=== PATIENT | female | born 1990 | race Caucasian/White ===

== ENCOUNTER 2018-04-02 12:42 | Emergency (ER) | payer OTHER, SELFPAY ==
[2018-04-02 12:49] VITALS: BMI 33.1
--- NOTE | 2018-04-02 12:55 | DI.US.S_ITS ---
PROCEDURE: US OB <= 14 WEEKS FETUS INDICATIONS: BLEEDING OUTSIDE/PRIOR DATING DATA: Last menstrual period (LMP): 02/11/18. LMP-based estimated date of delivery (DONNELL): 11/18/18. First dating scan (date and location): 04/02/18. Estimated date of delivery (DONNELL) from first dating scan: 11/26/18. TECHNIQUE: Real-time scanning was performed of the fetus and maternal pelvic organs, with image documentation. Endovaginal scanning was also performed to better visualize the fetus and maternal ovaries. COMPARISON: None. FINDINGS: Embryo: A single intrauterine gestational sac is identified. A developing embryo is well visualized with a crown-rump length measuring approximately 0.35 mm, which corresponds with an estimated gestational age of 6 weeks 0 days. heart motion was detected at 113 beats per minute. A yolk sac is well-visualized and within normal limits for size. No definite subchorionic hemorrhage is appreciated. Measurement variability in dating: +/- 4 weeks by LMP, +/- 7 days by mean sac diameter (use before 6 weeks gestation if crown-rump length not able to be measured), +/- 5 days by crown-rump length (up to 8 weeks 6 days gestation), +/- 7 days by crown-rump length (up to 13 weeks 6 days gestation). Maternal organs: Ovaries are normal in size. Limited images through the kidneys demonstrate no hydronephrosis. IMPRESSION: 1. Single live intrauterine at 6 weeks 0 days (current DONNELL 11/26/18). 2. No subchorionic hemorrhage. Dictated by: Paresh Trevino M.D. on 04/02/2018 at 14:05 Approved by: Paresh Trevino M.D. on 04/02/2018 at 14:06
[2018-04-02 13:12] LABS: Add Manual Diff / Slide Review NO; Basophils Percent Auto 0.5 % (0-2); Eosinophils Percent Auto 1.7 % (2-4); Hemoglobin 12.8 g/dL (12.0-16.0); Lymphocytes Percent Auto 18.6 % (25-40); Mean Corpuscular HGB Conc 33.7 % (30-36); Mean Corpuscular Hemoglobin 29.3 PG (26-34); Mean Corpuscular Volume 86.8 fL (80-100); Monocytes Percent Auto 4.7 % (3-14); Neutrophils Absolute Auto 7900 /uL (1500-7000); Neutrophils Percent Auto 74.5 % (50-75); Platelet Count 272 X10^3/uL (150-400); Red Blood Cell Count 4.38 X10^6/uL (4.0-5.2); Red Cell Distribution Width 12.9 % (11.6-14.8); White Blood Cell Count 10.7 X10^3/uL (4.5-11.0)
[2018-04-02 13:32] LABS: Alanine Aminotransferase 27 IU/L (9-52); Albumin 4.6 g/dL (3.5-5.0); Albumin Globulin Ratio 1.5 (1.0-2.8); Alkaline Phosphatase 47 U/L (38-126); Aspartate Aminotransferase 22 IU/L (14-36); Bilirubin Total 0.3 mg/dL (0.2-1.3); Blood Urea Nitrogen 12 mg/dL (7-17); Calcium 9.3 mg/dL (8.4-10.2); Carbon Dioxide 22 mmol/L (22-32); Chloride 104 mmol/L (98-107); Estimated Glomerular Filt Rate > 60.0 mL/min (>60); Globulin 3.1 g/dL (1.7-4.1); Glucose 133 mg/dL (70-100); HEMOLYSIS < 15 (0-50); Potassium 3.4 mmol/L (3.4-5.1); Sodium 141 mmol/L (137-145); Total Protein 7.7 g/dL (6.3-8.2)
[2018-04-02 13:48] LABS: HCG Quantitative /Beta subunit 8451.3 mIU/mL
--- NOTE | 2018-04-02 15:49 | ED.PREGNANCY ---
HPI - <LAUREN Villalobos - Last Filed: 04/02/18 21:02> General Chief complaint: OB/Uterine Contractions Stated complaint: 7 weeks ; spotting Time Seen by Provider: 04/02/18 13:10 Source: patient Mode of arrival: ambulatory Limitations: no limitations History of Present Illness HPI Narrative: 27-year-old healthy female that prior to was an everyday smoker here for complaint vaginal spotting yesterday. She reports that she is approximately 7 weeks . She is 1. She denies any abdominal pain or cramping. She denies any urinary symptoms. No fevers or chills. She denies any flank pain. She reports that she saw blood when she was wiping. She has not had any other bleeding today. She denies any other concerns or complaints this timeframe. She does not know her blood type. Related Data Allergies Allergy/AdvReac Type Severity Reaction Status Date / Time Penicillins Allergy Verified 04/02/18 12:49 Review of Systems <LAUREN Villalobos - Last Filed: 04/02/18 21:02> Constitutional Denies chills, Denies fever(s), Denies lethargy and Denies weakness Eyes Denies change in vision, Denies eye discharge, Denies irritation and Denies loss of vision ENT Ears, Nose, Mouth, and Throat: Denies change in voice, Denies neck pain and Denies sore throat Cardiovascular Denies chest pain, Denies irregular heart rhythm, Denies lightheadedness, Denies palpitations, Denies dyspnea, Denies dyspnea on exertion and Denies orthopnea Respiratory Denies cough, Denies dyspnea, Denies dyspnea on exertion and Denies wheezing Gastrointestinal Gastrointestinal: Denies abdominal pain, Denies change in bowel habits, Denies diarrhea, Denies nausea and Denies vomiting Genitourinary Comments: Vaginal bleeding with Musculoskeletal Denies neck pain Integumentary/Breasts Denies pruritus, Denies erythema, Denies rash and Denies wounds Neurologic Denies confusion, Denies loss of vision and Denies weakness Psychiatric Denies anxiety, Denies confusion, Denies depression, Denies homicidal ideation and Denies suicidal ideation Endocrine Denies palpitations Allergic/Immunologic Denies wheezing PMFSH - <LAUREN Villalobos - Last Filed: 04/02/18 21:02> Past Medical History Medical history: Reports no medical history Surgical history: Reports no surgical history Exam <LAUREN Villalobos - Last Filed: 04/02/18 21:02> Const General: cooperative and well developed Nutritional Appearance: well nourished Orientation: alert, awake, oriented x3 and not confused [facility] Mouth: oral mucosae normal and moist mucous membranes Eyes Conjunctivae: conjunctivae normal Sclera: sclerae normal Pupils: PERRL EOM: EOM intact bilaterally Resp Effort & Inspection: normal respiratory effort, able to speak in complete sentences, no respiratory distress and no use of accessory muscles Auscultation: clear to auscultation bilaterally, no rales, no rhonchi and no wheezes Cardio Rate: regular rate Rhythm: regular rhythm Heart Sounds: no click, no gallops, no murmurs and no rubs Pulses: normal peripheral pulses GI Inspection: non-distended Palpation: soft, no hepatosplenomegaly, No guarding, No pulsatile mass and No tender Auscultation: normal bowel sounds General: No CVA tenderness Skin General: no rashes or lesions noted, No jaundice and No petechiae Neuro General: alert, oriented x3, gait normal and no focal motor deficits Speech: speech normal Course <LAUREN Villalobos - Last Filed: 04/02/18 21:02> Orders Ordered: ED Orders 04/02/18 12:55 OB <= 14 weeks fetus Stat 04/02/18 13:04 ABO RH Type Stat Complete Blood Count AUTO DIFF Stat Comprehensive Metabolic Panel Stat HCG Quantitative Stat <Antony Issa DO - Last Filed: 04/02/18 21:53> Orders Ordered: ED Orders 04/02/18 12:55 OB <= 14 weeks fetus Stat 04/02/18 13:04 ABO RH Type Stat Complete Blood Count AUTO DIFF Stat Comprehensive Metabolic Panel Stat HCG Quantitative Stat MDM - OB/Uterine Contractions <LAUREN Villalobos - Last Filed: 04/02/18 21:02> Lab Data Result diagrams: 04/02/18 13:04 04/02/18 13:04 Lab Results 04/02/18 04/02/18 04/02/18 Range/Units 13:04 13:04 13:04 WBC 10.7 (4.5-11.0) X10^3/uL RBC 4.38 (4.0-5.2) X10^6/uL Hgb 12.8 (12.0-16.0) g/dL Hct 38.0 (36-46) % MCV 86.8 (80-100) fL MCH 29.3 (26-34) PG MCHC 33.7 (30-36) % RDW 12.9 (11.6-14.8) % Plt Count 272 (150-400) X10^3/uL Neut % (Auto) 74.5 (50-75) % Lymph % (Auto) 18.6 L (25-40) % Tate % (Auto) 4.7 (3-14) % Eos % (Auto) 1.7 L (2-4) % Baso % (Auto) 0.5 (0-2) % Neut # (Auto) 7900 H (7118-2284) /uL Sodium 141 (137-145) mmol/L Potassium 3.4 (3.4-5.1) mmol/L Chloride 104 (98-107) mmol/L Carbon Dioxide 22 (22-32) mmol/L BUN 12 (7-17) mg/dL Creatinine 0.60 (0.52-1.04) mg/dL Estimated GFR > 60.0 (>60) mL/min BUN/Creatinine Ratio 20.0 (6-22) Glucose 133 H (70-100) mg/dL Calcium 9.3 (8.4-10.2) mg/dL Total Bilirubin 0.3 (0.2-1.3) mg/dL AST 22 (14-36) IU/L ALT 27 (9-52) IU/L Alkaline Phosphatase 47 (38-126) U/L Total Protein 7.7 (6.3-8.2) g/dL Albumin 4.6 (3.5-5.0) g/dL Globulin 3.1 (1.7-4.1) g/dL Albumin/Globulin Ratio 1.5 (1.0-2.8) HCG, Quant 8451.3 mIU/mL Blood Type A Positive Urine Dip Bedside Urine Glucose Negative Bedside Urine Bilirubin - Negative Bedside Urine Ketone ++ 40 Urine Specific [place] 1.030 Bedside Urine Occult Blood - Negative Bedside Urine pH 6.0 Bedside Urine Protein - Negative Bedside Urine Urobilinogen - Negative Bedside Urine Nitrite - Negative Bedside Urine Leukocytes - Negative Esterase Imaging Data OB us: Radiologist's impression: [address] [address] Ultrasound Report Signed Patient: Deepa Hicks MR#: [id number] : 1990 Acct:[id number] Age/Sex: 27 / F Date of Service: 04/02/18 Loc: ED Accession Number: [id number] Procedure: US OB <= 14 weeks fetus Ordering Provider: Kristan Amaro D.O. PROCEDURE: US OB <= 14 WEEKS FETUS INDICATIONS: BLEEDING OUTSIDE/PRIOR DATING DATA: Last menstrual period (LMP): 02/11/18. LMP-based estimated date of delivery (DONNELL): 11/18/18. First dating scan (date and location): 04/02/18. Estimated date of delivery (DONNELL) from first dating scan: 11/26/18. TECHNIQUE: Real-time scanning was performed of the fetus and maternal pelvic organs, with image documentation. Endovaginal scanning was also performed to better visualize the fetus and maternal ovaries. COMPARISON: None. FINDINGS: Embryo: A single intrauterine gestational sac is identified. A developing embryo is well visualized with a crown-rump length measuring approximately 0.35 mm, which corresponds with an estimated gestational age of 6 weeks 0 days. heart motion was detected at 113 beats per minute. A yolk sac is well-visualized and within normal limits for size. No definite subchorionic hemorrhage is appreciated. Measurement variability in dating: +/- 4 weeks by LMP, +/- 7 days by mean sac diameter (use before 6 weeks gestation if crown-rump length not able to be measured), +/- 5 days by crown-rump length (up to 8 weeks 6 days gestation), +/- 7 days by crown-rump length (up to 13 weeks 6 days gestation). Maternal organs: Ovaries are normal in size. Limited images through the kidneys demonstrate no hydronephrosis. IMPRESSION: 1. Single live intrauterine at 6 weeks 0 days (current DONNELL 11/26/18). 2. No subchorionic hemorrhage. Dictated by: Paresh Trevino M.D. on 04/02/2018 at 14:05 Approved by: Paresh Trevino M.D. on 04/02/2018 at 14:06 [facility] Narrative Medical decision making narrative: CBC and Chem panel were obtained were unremarkable. HCG quantitative was 8400 today. Ob ultrasound shows approximately 6 week intrauterine yolk sac with heart rate of 113. Her blood type is A positive. Signs and symptoms presents as a threatened . She is encouraged to follow up with her OB in the next couple of days for re-evaluation. Pelvic rest. [id number] Tylenol as needed for any discomfort. For any worsening bleeding or problems return to the emergency room. <Antony Issa, DO - Last Filed: 04/02/18 21:53> Lab Data Lab Results 04/02/18 04/02/18 04/02/18 Range/Units 13:04 13:04 13:04 WBC 10.7 (4.5-11.0) X10^3/uL RBC 4.38 (4.0-5.2) X10^6/uL Hgb 12.8 (12.0-16.0) g/dL Hct 38.0 (36-46) % MCV 86.8 (80-100) fL MCH 29.3 (26-34) PG MCHC 33.7 (30-36) % RDW 12.9 (11.6-14.8) % Plt Count 272 (150-400) X10^3/uL Neut % (Auto) 74.5 (50-75) % Lymph % (Auto) 18.6 L (25-40) % Tate % (Auto) 4.7 (3-14) % Eos % (Auto) 1.7 L (2-4) % Baso % (Auto) 0.5 (0-2) % Neut # (Auto) 7900 H (2381-5034) /uL Sodium 141 (137-145) mmol/L Potassium 3.4 (3.4-5.1) mmol/L Chloride 104 (98-107) mmol/L Carbon Dioxide 22 (22-32) mmol/L BUN 12 (7-17) mg/dL Creatinine 0.60 (0.52-1.04) mg/dL Estimated GFR > 60.0 (>60) mL/min BUN/Creatinine Ratio 20.0 (6-22) Glucose 133 H (70-100) mg/dL Calcium 9.3 (8.4-10.2) mg/dL Total Bilirubin 0.3 (0.2-1.3) mg/dL AST 22 (14-36) IU/L ALT 27 (9-52) IU/L Alkaline Phosphatase 47 (38-126) U/L Total Protein 7.7 (6.3-8.2) g/dL Albumin 4.6 (3.5-5.0) g/dL Globulin 3.1 (1.7-4.1) g/dL Albumin/Globulin Ratio 1.5 (1.0-2.8) HCG, Quant 8451.3 mIU/mL Blood Type A Positive Urine Dip Bedside Urine Glucose Negative Bedside Urine Bilirubin - Negative Bedside Urine Ketone ++ 40 Urine Specific [place] 1.030 Bedside Urine Occult Blood - Negative Bedside Urine pH 6.0 Bedside Urine Protein - Negative Bedside Urine Urobilinogen - Negative Bedside Urine Nitrite - Negative Bedside Urine Leukocytes - Negative Esterase Discharge Plan Departure Patient Disposition: Home Clinical Impression: , threatened Discharge Date/Time: 04/02/18 16:17 Interventions: ED Discharge Assessment Last Done: 04/02/18 16:16 Instructions: DI for Threatened Activity Restrictions/Additional Instructions: Laboratory results today were unremarkable. Ultrasound shows 6 week healthy baby in the uterus with a good heart beat. Signs and symptoms presents as a threatened . Pelvic rest. [id number] Tylenol as needed for any discomfort. Follow up with OB in the next few days for re-evaluation. For any worsening symptoms return to the emergency room. Referrals: [facility] [Provider Group] <Antony Isas DO - Last Filed: 04/02/18 21:53> Cosign ED Attending Jimmy Attestation: I was available for consultation during this patient's emergency department encounter
--- NOTE | 2018-04-02 15:52 | ED_ITS ---
HPI - <LAUREN Villalobos - Last Filed: 04/02/18 21:02> General Chief complaint: OB/Uterine Contractions Stated complaint: 7 weeks ; spotting Time Seen by Provider: 04/02/18 13:10 Source: patient Mode of arrival: ambulatory Limitations: no limitations History of Present Illness HPI Narrative: 27-year-old healthy female that prior to was an everyday smoker here for complaint vaginal spotting yesterday. She reports that she is approximately 7 weeks . She is 1. She denies any abdominal pain or cramping. She denies any urinary symptoms. No fevers or chills. She denies any flank pain. She reports that she saw blood when she was wiping. She has not had any other bleeding today. She denies any other concerns or complaints this timeframe. She does not know her blood type. Related Data Allergies Allergy/AdvReac Type Severity Reaction Status Date / Time Penicillins Allergy Verified 04/02/18 12:49 Review of Systems <LAUREN Villalobos - Last Filed: 04/02/18 21:02> Constitutional Denies chills, Denies fever(s), Denies lethargy and Denies weakness Eyes Denies change in vision, Denies eye discharge, Denies irritation and Denies loss of vision ENT Ears, Nose, Mouth, and Throat: Denies change in voice, Denies neck pain and Denies sore throat Cardiovascular Denies chest pain, Denies irregular heart rhythm, Denies lightheadedness, Denies palpitations, Denies dyspnea, Denies dyspnea on exertion and Denies orthopnea Respiratory Denies cough, Denies dyspnea, Denies dyspnea on exertion and Denies wheezing Gastrointestinal Gastrointestinal: Denies abdominal pain, Denies change in bowel habits, Denies diarrhea, Denies nausea and Denies vomiting Genitourinary Comments: Vaginal bleeding with Musculoskeletal Denies neck pain Integumentary/Breasts Denies pruritus, Denies erythema, Denies rash and Denies wounds Neurologic Denies confusion, Denies loss of vision and Denies weakness Psychiatric Denies anxiety, Denies confusion, Denies depression, Denies homicidal ideation and Denies suicidal ideation Endocrine Denies palpitations Allergic/Immunologic Denies wheezing PMFSH - <LAUREN Villalobos - Last Filed: 04/02/18 21:02> Past Medical History Medical history: Reports no medical history Surgical history: Reports no surgical history Exam <LAUREN Villalobos - Last Filed: 04/02/18 21:02> Const General: cooperative and well developed Nutritional Appearance: well nourished Orientation: alert, awake, oriented x3 and not confused [facility] Mouth: oral mucosae normal and moist mucous membranes Eyes Conjunctivae: conjunctivae normal Sclera: sclerae normal Pupils: PERRL EOM: EOM intact bilaterally Resp Effort & Inspection: normal respiratory effort, able to speak in complete sentences, no respiratory distress and no use of accessory muscles Auscultation: clear to auscultation bilaterally, no rales, no rhonchi and no wheezes Cardio Rate: regular rate Rhythm: regular rhythm Heart Sounds: no click, no gallops, no murmurs and no rubs Pulses: normal peripheral pulses GI Inspection: non-distended Palpation: soft, no hepatosplenomegaly, No guarding, No pulsatile mass and No tender Auscultation: normal bowel sounds General: No CVA tenderness Skin General: no rashes or lesions noted, No jaundice and No petechiae Neuro General: alert, oriented x3, gait normal and no focal motor deficits Speech: speech normal Course <LAUREN Villalobos - Last Filed: 04/02/18 21:02> Orders Ordered: ED Orders 04/02/18 12:55 OB <= 14 weeks fetus Stat 04/02/18 13:04 ABO RH Type Stat Complete Blood Count AUTO DIFF Stat Comprehensive Metabolic Panel Stat HCG Quantitative Stat <Antony Issa DO - Last Filed: 04/02/18 21:53> Orders Ordered: ED Orders 04/02/18 12:55 OB <= 14 weeks fetus Stat 04/02/18 13:04 ABO RH Type Stat Complete Blood Count AUTO DIFF Stat Comprehensive Metabolic Panel Stat HCG Quantitative Stat MDM - OB/Uterine Contractions <LAUREN Villalobos - Last Filed: 04/02/18 21:02> Lab Data Result diagrams: 04/02/18 13:04 04/02/18 13:04 Lab Results 04/02/18 04/02/18 04/02/18 Range/Units 13:04 13:04 13:04 WBC 10.7 (4.5-11.0) X10^3/uL RBC 4.38 (4.0-5.2) X10^6/uL Hgb 12.8 (12.0-16.0) g/dL Hct 38.0 (36-46) % MCV 86.8 (80-100) fL MCH 29.3 (26-34) PG MCHC 33.7 (30-36) % RDW 12.9 (11.6-14.8) % Plt Count 272 (150-400) X10^3/uL Neut % (Auto) 74.5 (50-75) % Lymph % (Auto) 18.6 L (25-40) % [place] % (Auto) 4.7 (3-14) % Eos % (Auto) 1.7 L (2-4) % Baso % (Auto) 0.5 (0-2) % Neut # (Auto) 7900 H (4629-1695) /uL Sodium 141 (137-145) mmol/L Potassium 3.4 (3.4-5.1) mmol/L Chloride 104 (98-107) mmol/L Carbon Dioxide 22 (22-32) mmol/L BUN 12 (7-17) mg/dL Creatinine 0.60 (0.52-1.04) mg/dL Estimated GFR > 60.0 (>60) mL/min BUN/Creatinine Ratio 20.0 (6-22) Glucose 133 H (70-100) mg/dL Calcium 9.3 (8.4-10.2) mg/dL Total Bilirubin 0.3 (0.2-1.3) mg/dL AST 22 (14-36) IU/L ALT 27 (9-52) IU/L Alkaline Phosphatase 47 (38-126) U/L Total Protein 7.7 (6.3-8.2) g/dL Albumin 4.6 (3.5-5.0) g/dL Globulin 3.1 (1.7-4.1) g/dL Albumin/Globulin Ratio 1.5 (1.0-2.8) HCG, Quant 8451.3 mIU/mL Blood Type A Positive Urine Dip Bedside Urine Glucose Negative Bedside Urine Bilirubin - Negative Bedside Urine Ketone ++ 40 Urine Specific [place] 1.030 Bedside Urine Occult Blood - Negative Bedside Urine pH 6.0 Bedside Urine Protein - Negative Bedside Urine Urobilinogen - Negative Bedside Urine Nitrite - Negative Bedside Urine Leukocytes - Negative Esterase Imaging Data OB us: Radiologist's impression: [address] [address] Ultrasound Report Signed Patient: Deepa Hicks MR#: [id number] : 1990 Acct:[id number] Age/Sex: 27 / F Date of Service: 04/02/18 Loc: ED Accession Number: [id number] Procedure: US OB <= 14 weeks fetus Ordering Provider: Kristan Amaro D.O. PROCEDURE: US OB <= 14 WEEKS FETUS INDICATIONS: BLEEDING OUTSIDE/PRIOR DATING DATA: Last menstrual period (LMP): 02/11/18. LMP-based estimated date of delivery (DONNELL): 11/18/18. First dating scan (date and location): 04/02/18. Estimated date of delivery (DONNELL) from first dating scan: 11/26/18. TECHNIQUE: Real-time scanning was performed of the fetus and maternal pelvic organs, with image documentation. Endovaginal scanning was also performed to better visualize the fetus and maternal ovaries. COMPARISON: None. FINDINGS: Embryo: A single intrauterine gestational sac is identified. A developing embryo is well visualized with a crown-rump length measuring approximately 0.35 mm, which corresponds with an estimated gestational age of 6 weeks 0 days. heart motion was detected at 113 beats per minute. A yolk sac is well-visualized and within normal limits for size. No definite subchorionic hemorrhage is appreciated. Measurement variability in dating: +/- 4 weeks by LMP, +/- 7 days by mean sac diameter (use before 6 weeks gestation if crown-rump length not able to be measured), +/ - 5 days by crown-rump length (up to 8 weeks 6 days gestation), +/- 7 days by crown-rump length (up to 13 weeks 6 days gestation). Maternal organs: Ovaries are normal in size. Limited images through the kidneys demonstrate no hydronephrosis. IMPRESSION: 1. Single live intrauterine at 6 weeks 0 days (current DONNELL 11/26/18). 2. No subchorionic hemorrhage. Dictated by: Paresh Trevino M.D. on 04/02/2018 at 14:05 Approved by: Paresh Trevino M.D. on 04/02/2018 at 14:06 [facility] Narrative Medical decision making narrative: CBC and Chem panel were obtained were unremarkable. HCG quantitative was 8400 today. Ob ultrasound shows approximately 6 week intrauterine yolk sac with heart rate of 113. Her blood type is A positive. Signs and symptoms presents as a threatened . She is encouraged to follow up with her OB in the next couple of days for re- evaluation. Pelvic rest. [id number] Tylenol as needed for any discomfort. For any worsening bleeding or problems return to the emergency room. <Antony Issa, DO - Last Filed: 04/02/18 21:53> Lab Data Lab Results 04/02/18 04/02/18 04/02/18 Range/Units 13:04 13:04 13:04 WBC 10.7 (4.5-11.0) X10^3/uL RBC 4.38 (4.0-5.2) X10^6/uL Hgb 12.8 (12.0-16.0) g/dL Hct 38.0 (36-46) % MCV 86.8 (80-100) fL MCH 29.3 (26-34) PG MCHC 33.7 (30-36) % RDW 12.9 (11.6-14.8) % Plt Count 272 (150-400) X10^3/uL Neut % (Auto) 74.5 (50-75) % Lymph % (Auto) 18.6 L (25-40) % [place] % (Auto) 4.7 (3-14) % Eos % (Auto) 1.7 L (2-4) % Baso % (Auto) 0.5 (0-2) % Neut # (Auto) 7900 H (0532-0941) /uL Sodium 141 (137-145) mmol/L Potassium 3.4 (3.4-5.1) mmol/L Chloride 104 (98-107) mmol/L Carbon Dioxide 22 (22-32) mmol/L BUN 12 (7-17) mg/dL Creatinine 0.60 (0.52-1.04) mg/dL Estimated GFR > 60.0 (>60) mL/min BUN/Creatinine Ratio 20.0 (6-22) Glucose 133 H (70-100) mg/dL Calcium 9.3 (8.4-10.2) mg/dL Total Bilirubin 0.3 (0.2-1.3) mg/dL AST 22 (14-36) IU/L ALT 27 (9-52) IU/L Alkaline Phosphatase 47 (38-126) U/L Total Protein 7.7 (6.3-8.2) g/dL Albumin 4.6 (3.5-5.0) g/dL Globulin 3.1 (1.7-4.1) g/dL Albumin/Globulin Ratio 1.5 (1.0-2.8) HCG, Quant 8451.3 mIU/mL Blood Type A Positive Urine Dip Bedside Urine Glucose Negative Bedside Urine Bilirubin - Negative Bedside Urine Ketone ++ 40 Urine Specific [place] 1.030 Bedside Urine Occult Blood - Negative Bedside Urine pH 6.0 Bedside Urine Protein - Negative Bedside Urine Urobilinogen - Negative Bedside Urine Nitrite - Negative Bedside Urine Leukocytes - Negative Esterase Discharge Plan Departure Patient Disposition: Home Clinical Impression: , threatened Discharge Date/Time: 04/02/18 16:17 Interventions: ED Discharge Assessment Last Done: 04/02/18 16:16 Instructions: DI for Threatened Activity Restrictions/Additional Instructions: Laboratory results today were unremarkable. Ultrasound shows 6 week healthy baby in the uterus with a good heart beat. Signs and symptoms presents as a threatened . Pelvic rest. [id number]-[id number] Tylenol as needed for any discomfort. Follow up with OB in the next few days for re-evaluation. For any worsening symptoms return to the emergency room. Referrals: [facility] [Provider Group] <Antony Issa DO - Last Filed: 04/02/18 21:53> Cosign ED Attending Jimmy Attestation: I was available for consultation during this patient's emergency department encounter
== END 2018-04-02 16:17 | disposition home or self-care (01) ==
PROVIDERS: Emergency Medicine; Emergency Provider Nurse Practitioner Family
DX: O20.0 Threatened abortion (principal)
CPT/HCPCS: 36415; 76801; 76817; 80053; 81003; 84702; 85025; 86900; 86901; 99282; 99284

== ENCOUNTER → 2018-10-07 09:54 | Outpatient (CLI) | payer OTHER, SELFPAY ==
[2018-10-07 10:39] LABS: Appearance Urine UA CLOUDY; Bilirubin Urine UA NEGATIVE (NEGATIVE); Color Urine UA YELLOW; Glucose Urine UA NEGATIVE (Negative); Ketones Urine UA NEGATIVE (NEGATIVE); Leukocyte Esterase Urine UA NEGATIVE (NEGATIVE); Nitrite Urine UA NEGATIVE (Negative); Occult Blood Urine UA NEGATIVE (Negative); Protein Urine UA NEGATIVE (Negative); Specific Gravity Urine UA 1.025 (1.000-1.035); Urobilinogen Urine UA 0.2 E.U./dL (0.2); pH Urine UA 7.5 (4.5-8.0)
[2018-10-07 10:40] LABS: Add Manual Diff / Slide Review NO; Basophils Absolute Auto 0 /uL (0-100); Basophils Percent Auto 0.3 % (0-2); Eosinophils Absolute Auto 100 /uL (0-450); Eosinophils Percent Auto 1.5 % (2-4); Hematocrit 37.7 % (36-46); Hemoglobin 13.3 g/dL (12.0-16.0); Lymphocytes Absolute Auto 1800 /uL (1100-4500); Lymphocytes Percent Auto 19.7 % (25-40); Mean Corpuscular HGB Conc 35.2 % (30-36); Mean Corpuscular Hemoglobin 30.1 PG (26-34); Mean Corpuscular Volume 85.5 fL (80-100); Monocytes Absolute Auto 600 /uL (0-900); Neutrophils Absolute Auto 6500 /uL (1500-7000); Neutrophils Percent Auto 71.5 % (50-75); Platelet Count 298 X10^3/uL (150-400); Red Blood Cell Count 4.41 X10^6/uL (4.0-5.2); Red Cell Distribution Width 12.7 % (11.6-14.8); White Blood Cell Count 9.1 X10^3/uL (4.5-11.0)
[2018-10-07 11:38] LABS: Hepatitis B Surface Antigen NEGATIVE s/c (NEGATIVE); Rubella Antibody IgG 26.3 IU/mL (>15)
[2018-10-07 11:54] LABS: HIV 1 and 2 Antibody NEGATIVE (NEGATIVE); Hep C Virus Ab w/Reflex Quant NEGATIVE s/c (NEGATIVE)
[2018-10-09 22:32] LABS: RPR Screen Nonreactive (Nonreactive)
== END ==
PROVIDERS: Visit Provider Specialist
DX: Z34.01 Encounter for supervision of normal first pregnancy, first trimester (principal); Z3A.10 10 weeks gestation of pregnancy
CPT/HCPCS: 36415; 80055; 81003; 86703; 86787; 86803; 86850; 86900; 86901; 87086

== ENCOUNTER → 2018-11-30 09:45 | Outpatient (CLI) | payer OTHER, SELFPAY | PROVIDERS: PCP Family Medicine; Visit Provider Specialist | DX: Z34.02 Encounter for supervision of normal first pregnancy, second trimester (principal) | CPT/HCPCS: 36415; 82105 ==

== ENCOUNTER → 2018-12-18 11:43 | Outpatient (CLI) | payer OTHER, SELFPAY ==
--- NOTE | 2018-12-18 11:46 | DI.US.S_ITS ---
PROCEDURE: US OB >= 14 WEEKS FETUS INDICATIONS: ANATOMY SCAN OUTSIDE/PRIOR DATING DATA: Last menstrual period (LMP): Unknown LMP-based estimated date of delivery (DONNELL): N./A.. First dating scan (date and location): 10/07/18. Estimated date of delivery (DONNELL) from first dating scan: 04/28/19. TECHNIQUE: Real-time scanning was performed of the fetus, with image documentation and biometric measurements. COMPARISON: [facility], , OB >= 14 WEEKS FETUS, 10/23/2018, 12:07. FINDINGS: General: A single living intrauterine gestation is present. Presentation: Vertex Placenta: Placental position is anterior, without previa. Small posterior succenturiate lobe is noted. Amniotic fluid index: 3 .5 cm, normal range is 5-24 cm. heart rate: 157 beats per minute. Maternal cervical canal: 3.5 cm long. Normal lower limit is 2.5 cm. biometrics: Biparietal diameter: 21 weeks 2 days Head circumference: 21 weeks Abdominal circumference: 22 weeks 1 day Femur length: 22 weeks 3 days Estimated gestational age from initial scan: 21 weeks 2 days Composite gestational age from present scan: 21 weeks 4 days Estimated weight and percentile: 472 g; 83rd percentile Measurement variability for biometric dating: +/- 7 days from 14 weeks to 15 weeks 6 days gestation, +/- 10 days from 16 weeks to 21 weeks 6 days gestation, +/- 2 weeks from 22 weeks to 27 weeks 6 days gestation, +/- 3 weeks for 28 weeks gestation or later. weight reference: 4500 g or EFW >90/95% is considered macrosomia or large for gestational age. EFW <10% is small for gestational age. EFW 5% or less is considered intra-uterine growth restriction. Anatomic survey: Neuro: Ventricles are non-dilated at less than 10 mm. Cisterna magna is normal at 3-11 mm. Cerebellum is normal in size and morphology. Nuchal skin fold: Normal at less than 6 mm between 14-21 weeks gestational age. Face: Nose and lips, facial profile are normal. Spine: No evidence for spina bifida. Heart: 4-chambered heart is present, with normal ventricular outflow tracts. Diaphragm: Diaphragm is intact. Stomach: Left-sided stomach is present. Kidneys: No hydronephrosis. Normal is less than 5 mm in 2nd trimester, less than 7 mm in 3rd trimester. Cord: 3-vessel cord has orthotopic insertion. Bladder: Normal in size. Extremities: All 4 extremities identified. IMPRESSION: 1. Single living IUP with mean composite gestational age of 21 weeks 4 days corresponding to normal interval growth. 2. Normal anatomic survey. 3. Succenturiate lobe of placenta is present posteriorly. Dictated by: Canelo Cohen [facility] Interpreted: Rayray Ojeda MD on 12/18/2018 at 14:15 Approved by: Rayray Ojeda M.D. on 12/18/2018 at 17:22
== END ==
PROVIDERS: PCP Family Medicine; Visit Provider Specialist
DX: Z34.82 Encounter for supervision of other normal pregnancy, second trimester (principal); Z3A.21 21 weeks gestation of pregnancy
CPT/HCPCS: 76811

== ENCOUNTER → 2019-01-11 07:20 | Outpatient (CLI) | payer OTHER, SELFPAY ==
[2019-01-11 08:56] LABS: Hematocrit 32.5 % (36-46); Hemoglobin 11.3 g/dL (12.0-16.0)
[2019-01-11 09:28] LABS: GTT (PREG) 1 Hour PP 50gm Dose 110 mg/dL (76-139)
== END ==
PROVIDERS: PCP Family Medicine; Visit Provider Specialist
DX: Z34.82 Encounter for supervision of other normal pregnancy, second trimester (principal); Z3A.22 22 weeks gestation of pregnancy
CPT/HCPCS: 36415; 82950; 85014; 85018

== ENCOUNTER → 2019-02-19 13:44 | Outpatient (CLI) | payer OTHER, SELFPAY ==
[2019-02-19 14:46] LABS: Fetal Fibronectin Negative
== END ==
PROVIDERS: PCP Family Medicine; Visit Provider Specialist
DX: O47.9 False labor, unspecified (principal)
CPT/HCPCS: 82731

== ENCOUNTER → 2019-04-15 10:37 | Outpatient (CLI) | payer OTHER, SELFPAY ==
[2019-04-16 12:12] LABS: Strep Grp B PCR NEG for Grp B Strep
== END ==
PROVIDERS: PCP Family Medicine; Visit Provider Specialist
DX: Z34.83 Encounter for supervision of other normal pregnancy, third trimester (principal)
CPT/HCPCS: 87653

== ENCOUNTER 2019-04-26 15:50 | Outpatient (CLI) | payer OTHER, SELFPAY ==
--- NOTE | 2019-04-26 16:34 | PM.OBTRLD ---
Visit Information Visit Information Date of evaluation: 04/26/19 Primary OB Provider: Shoshana Henderson Reason for Evaluation: Yes rupture of membranes Vital Signs Vital Signs: Blood pressure 135/82, pulse 115, temperature 36? point [facility] Medical History (Updated 04/26/19 @ 16:36 by Shoshana Henderson MD) Human papilloma virus (Chronic ~2013) Surgical History (Updated 06/07/18 @ 21:34 by Terrie Thompson) H/O LEEP (Resolved ~2013) Family History (Updated 06/07/18 @ 21:41 by Terrie Thompson) Father Heart disease Mother Hypertension Grandfather Heart disease Grandmother Heart disease Dementia Social History marital status: Smoking Status: Former smoker alcohol intake: current substance use type: does not use Evaluation Evaluation Baseline heart rate: 150 Variability: Moderate (11-25) monitor accelerations: Present monitor decelerations: Absent Contraction Frequency (minutes): 7 Uterine Contraction Intensity: Mild Category of Tracing: I Non-invasive Membranes Rupture Test: negative Diagnosis, Plan/Disposition Final Diagnosis (1) Premature uterine contractions, antepartum: Current Visit: Yes Status: Acute Plan/Disposition Plan: Patient came in concerned she might have ruptured membranes. AmniSure negative. NST is reactive, discharge home. OB Disposition: home
== END 2019-04-26 16:40 | disposition home or self-care (01) ==
LOC: OB 04-29 09:56
PROVIDERS: PCP Family Medicine; Visit Provider Specialist
DX: Z34.83 Encounter for supervision of other normal pregnancy, third trimester (principal); Z3A.39 39 weeks gestation of pregnancy
CPT/HCPCS: 59025; 84112; G0378; G0379

== ENCOUNTER 2019-05-01 05:21 | Inpatient (IN) | payer OTHER, SELFPAY ==
[2019-05-01 05:51] VITALS: BP 135/75
[2019-05-01 06:36] LABS: Add Manual Diff / Slide Review NO; Basophils Absolute Auto 100 /uL (0-100); Basophils Percent Auto 0.6 % (0-2); Eosinophils Absolute Auto 100 /uL (0-450); Eosinophils Percent Auto 0.9 % (2-4); Hematocrit 36.2 % (36-46); Hemoglobin 12.3 g/dL (12.0-16.0); Lymphocytes Absolute Auto 1700 /uL (1100-4500); Lymphocytes Percent Auto 18.4 % (25-40); Mean Corpuscular Hemoglobin 29.5 PG (26-34); Mean Corpuscular Volume 86.9 fL (80-100); Monocytes Absolute Auto 700 /uL (0-900); Monocytes Percent Auto 7.7 % (3-14); Neutrophils Absolute Auto 6600 /uL (1500-7000); Neutrophils Percent Auto 72.4 % (50-75); Platelet Count 216 X10^3/uL (150-400); Red Blood Cell Count 4.17 X10^6/uL (4.0-5.2); Red Cell Distribution Width 13.9 % (11.6-14.8); White Blood Cell Count 9.1 X10^3/uL (4.5-11.0)
--- NOTE | 2019-05-01 14:03 | PM.OBHP.1 ---
OB HPI Date/Time Date of admission: 05/01/19 Date Patient Seen: 05/01/19 Time Patient Seen: 11:30 History of Present Condition Chief complaint: evaluation of labor, water broke : 2 Para: 0 Estimated Date of Delivery: 05/03/19 Estimated Gestational Age (weeks): 39 Narrative: Deepa Hicks is a 28 year old female with spontaneous rupture membranes admitted in early labor History of Present care: good care, initiated at week # (6), number of visits (16) and pounds weight gain (40) Dating criteria: LMP confirmed by 1st trimester US Ultrasounds: normal mid trimester US Obstetrical complications: none Medical complications: none Preadmission Labs Blood type: A (+) positive -: Antibody screen: negative, GBS status: negative, HBsAG: negative, HIV: negative and RPR/VDLR: negative -: Rubella: immune and Varicella: immune HCAB: negative Cell-free DNA: Normal female 1 hr GTT: 110 Evaluation Evaluation Baseline heart rate: 150 Variability: Moderate (11-25) monitor accelerations: Present monitor decelerations: Absent Contraction Frequency (minutes): 5 Uterine Contraction Intensity: Moderate Category of Tracing: I Cervical dilation (cm): 6 Cervical effacement (%): 100 station: 0 Laboratory results: Laboratory Tests 05/01/19 05/01/19 06:30 06:30 WBC 9.1 RBC 4.17 Hgb 12.3 Hct 36.2 MCV 86.9 MCH 29.5 MCHC 34.0 RDW 13.9 Plt Count 216 Neut % (Auto) 72.4 Lymph % (Auto) 18.4 L [place] % (Auto) 7.7 Eos % (Auto) 0.9 L Baso % (Auto) 0.6 Neut # (Auto) 6600 Lymph # (Auto) 1700 [place] # (Auto) 700 Eos # (Auto) 100 Baso # (Auto) 100 Blood Type A Positive Antibody Screen Negative PFSH Medical History (Updated 04/28/19 @ 09:10 by Stephan Tinoco MD) Human papilloma virus (Chronic ~2013) Surgical History (Updated 06/07/18 @ 21:34 by Terrie Thompson) H/O LEEP (Resolved ~2013) Family History (Updated 06/07/18 @ 21:41 by Terrie Thompson) Father Heart disease Mother Hypertension Grandfather Heart disease Grandmother Heart disease Dementia Social History marital status: Smoking Status: Never smoker alcohol intake: current substance use type: does not use Meds Home Medications and Allergies Home Medications Medication Instructions Recorded Confirmed Type calcium carbonate-vitamin D3 600 See Protocol PO DAILY tab 05/26/18 05/01/19 History mg(1,500 mg)-400 unit chewable tablet prenat.vits,deepa,bos-wwkm-shvbj 1 tab PO DAILY 05/26/18 05/01/19 History breast pump #1 each 03/29/19 05/01/19 Rx Allergies Allergy/AdvReac Type Severity Reaction Status Date / Time Penicillins Allergy Verified 09/08/18 16:37 Review of Systems Review of Systems Narrative: Patient denies headaches, scotomata, epigastric pain. Good movement. Spontaneous rupture membranes clear fluid at 4:00 a.m. ROS Unobtainable: All systems reviewed & are unremarkable except as noted in HPI and below Exam Vital Signs (past 8 hours): Blood pressure 135/78, pulse of 96, temperature 97.4? Narrative Exam Narrative: HEENT exam within normal limits. Lungs are clear to auscultation percussion. Heart is regular rate and rhythm no S3-S4 or murmurs. Fetus is vertex. Extremities with trace edema and nontender. Objective Labs Result Diagrams: 05/01/19 06:30 Labs: Laboratory Results - last 24 hr 05/01/19 05/01/19 06:30 06:30 WBC 9.1 RBC 4.17 Hgb 12.3 Hct 36.2 MCV 86.9 MCH 29.5 MCHC 34.0 RDW 13.9 Plt Count 216 Neut % (Auto) 72.4 Lymph % (Auto) 18.4 L [place] % (Auto) 7.7 Eos % (Auto) 0.9 L Baso % (Auto) 0.6 Neut # (Auto) 6600 Lymph # (Auto) 1700 [place] # (Auto) 700 Eos # (Auto) 100 Baso # (Auto) 100 Blood Type A Positive Antibody Screen Negative Assessment and Plan Assessment and Plan Assessment and Plan narrative: 39 week gestation with spontaneous rupture membranes in early labor. Anticipate vaginal delivery.
[2019-05-01] MEDS: LACTATED RINGERS 1,000 ML 100 ML IV (18:17)
[2019-05-01] MEDS: FENT 2MCG/ML BUPIV 0.125% EPI 200 MCG/100 ML PLAST..BAG 10 MCG EPIDURAL (18:17)
--- NOTE | 2019-05-01 22:48 | P.PCNOB_ITS ---
Labor & Delivery Delivery date: 05/01/19 Intrapartal events: Prolonged 2nd Stage > 2.5 hours Delivery monitor: external FHT and external uterine Route of delivery: L&D Laceration Description: Perineal - 2nd Degree and Labial Delivery repair: vicryl (3 0) Estimated blood loss (mL): 250 Anesthesia type: Epidural Narrative: Patient arrived on Labor and delivery after spontaneous rupture membranes. She went into active labor. She received an epidural catheter for pain control. heart tones category 1 to category 2 throughout labor. The patient delivered spontaneously, over an intact perineum. The viable female was placed on the maternal abdomen. After the cord stopped pulsating the cord was clamped, cut, and cord bloods obtained. The placenta delivered spontaneously, intact, with 3 vessels. There were no cervical or vaginal tears. There was a left labial tear that did not require suturing. A 2nd degree midline perineal tear was repaired in the usual 3 layer fashion with 3 0 chromic suture. Both infant and mother doing well. [place] Baby 1: gender: Female Presentation: vertex position: Right Occiput Anterior Placenta delivery description: Spontaneous cord vessel description: True Knot score (1 min): 9 score (5 min): 9 Plan for aftercare: Routine care
[2019-05-02] MEDS: IBUPROFEN 600 MG TABLET PO ×4 (00:11→20:33)
[2019-05-02] MEDS: ACETAMINOPHEN 325 MG TABLET 650 MG PO ×3 (04:02→23:55)
[2019-05-02 06:14] LABS: Add Manual Diff / Slide Review NO; Basophils Absolute Auto 0 /uL (0-100); Basophils Percent Auto 0.3 % (0-2); Eosinophils Absolute Auto 0 /uL (0-450); Eosinophils Percent Auto 0.1 % (2-4); Hematocrit 30.8 % (36-46); Hemoglobin 10.7 g/dL (12.0-16.0); Lymphocytes Absolute Auto 1800 /uL (1100-4500); Lymphocytes Percent Auto 12.5 % (25-40); Mean Corpuscular HGB Conc 34.8 % (30-36); Mean Corpuscular Hemoglobin 29.6 PG (26-34); Mean Corpuscular Volume 84.9 fL (80-100); Monocytes Absolute Auto 1100 /uL (0-900); Monocytes Percent Auto 7.8 % (3-14); Neutrophils Absolute Auto 11700 /uL (1500-7000); Neutrophils Percent Auto 79.3 % (50-75); Platelet Count 212 X10^3/uL (150-400); Red Blood Cell Count 3.63 X10^6/uL (4.0-5.2); Red Cell Distribution Width 13.9 % (11.6-14.8); White Blood Cell Count 14.7 X10^3/uL (4.5-11.0)
[2019-05-02] MEDS: DOCUSATE 100 MG CAPSULE PO (08:42)
--- NOTE | 2019-05-02 18:40 | P.PNOB_ITS ---
Subjective - OB Subjective Patient comments: no complaints [place] baby status: doing well feeding status: exclusively breast feeding Date Patient Seen: 05/02/19 Time Patient Seen: 18:40 Interval history: day 1. Patient denies any pain. She is breast- feeding without difficulty. She is urinating and ambulating well. No headaches, scotomata, epigastric pain. Exam Vital Signs (past 8 hours): Blood pressure 122/68, pulse of 89, temperature 98? Narrative Exam Narrative: Abdomen is soft, nontender. Uterus is firm, at U, nontender. Repair is intact. Mild lochia. Extremities without edema and nontender. Patient's blood type is A positive, rubella immune and received the Tdap in the 3rd trimester Objective Labs Result Diagrams: 05/02/19 06:05 Labs: Laboratory Results - last 24 hr 05/02/19 06:05 WBC 14.7 H D RBC 3.63 L Hgb 10.7 L Hct 30.8 L MCV 84.9 MCH 29.6 MCHC 34.8 RDW 13.9 Plt Count 212 Neut % (Auto) 79.3 H Lymph % (Auto) 12.5 L [place] % (Auto) 7.8 Eos % (Auto) 0.1 L Baso % (Auto) 0.3 Neut # (Auto) 32628 H Lymph # (Auto) 1800 [place] # (Auto) 1100 H Eos # (Auto) 0 Baso # (Auto) 0 Assessment & Plan Assessment and Plan (1) Vaginal delivery: Status: Acute Current Visit: Yes (2) Acute blood loss anemia: Status: Acute Current Visit: Yes Plan day: 1 plan OB: routine care Time Spent With Patient Time: Total time spent is greater than 50% in coordination of care (as documented) at patient's floor/unit and/or counseling patient: Time with patient: less than 15 minutes
[2019-05-03] MEDS: IBUPROFEN 600 MG TABLET PO ×2 (02:31→08:31)
[2019-05-03] MEDS: ACETAMINOPHEN 325 MG TABLET 650 MG PO (06:00)
--- NOTE | 2019-05-03 06:49 | P.DS_ITS ---
Discharge Providers Provider Date of admission: 05/01/19 05:21 Discharge Date: 05/03/19 Primary care physician: Jony Jacobo MD Consults: 05/01/19 05:51 Consult to Anesthesiology Urgent Comment: Consulting Provider: Anesthesiologist Reason for consultation: Epidural Has provider been notified: No 05/02/19 22:42 Consult to [employer] Operator Routine Comment: Discharge provider: Shoshana Henderson MD Summary Hospital Course Date Patient Seen: 05/03/19 Time Patient Seen: 06:49 Procedures: Nitrous oxide, epidural catheter, spontaneous vaginal delivery, repair of second-degree tear Hospital Course: Patient arrived on Labor and delivery in active labor. She use nitrous oxide and then epidural for pain control. Total length of labor 18 hours. She had a spontaneous vaginal delivery with repair of a second-degree tear. Viable female infant weighing 8 lb 3 oz. Both mother doing well. Patient is ambulatory, urinating well, pain under control. No headaches, scotomata, epigastric pain. Peripartum Data Delivery Method: Natural Vaginal Laceration description: Perineal - 2nd Degree Procedures: Nitrous oxide, epidural catheter, spontaneous vaginal delivery, repair of second-degree tear complications: none 1: Gender: Female Disposition of : home Discharge Diagnosis (1) Vaginal delivery: Status: Acute (2) Acute blood loss anemia: Status: Acute Status at Discharge Cognitive/behavioral status at discharge: oriented Functional status at discharge: independent ambulation Overall status at discharge: patient is progressing back to baseline Time Spent with Patient Time attestation: Total time spent providing and/or coordinating discharge services: Time spent: Less than 30 minutes Objective Labs Result Diagrams: 05/02/19 06:05 Exam Vital Signs (past 8 hours): Blood pressure 119/69, pulse 70, temperature 98.2? Narrative Exam Narrative: Abdomen is soft, nontender. Uterus is firm, at U, nontender. Repair is intact. Extremities without edema and nontender. Mild lochia. Patient's blood type is A positive, she is rubella immune, she received Tdap in the 3rd trimester. Discharge Plan Discharge Plan Patient Disposition: Home Discharge orders & Medications Prescriptions: New docusate sodium [DOK] 100 mg Capsule 100 mg PO DAILY Qty: 20 RF: 0 ibuprofen 600 mg Tablet 600 mg PO Q6HR PRN (Reason: Pain, Mild (1-3)) Qty: 30 RF: 0 ferrous gluconate 324 mg (38 mg iron) Tablet 324 mg PO DAILY Qty: 30 RF: 0 Continued (DME) breast pump Device See Rx Instructions .ROUTE .MEDSUPPLY Qty: 1 RF: 0 prenat.vits,deepa,wxy-yxna-vitlu tablet 1 tab PO DAILY RF: 0 Calcium 600 with Vitamin D3 600 mg(1,500mg) -400 unit tablet,chewable See Protocol tab PO DAILY RF: 0 Follow up/Referrals: Shoshana Henderson MD [Physician] - 1 Month ( exam) Jony Jacobo MD [Primary Care Provider] - Diet/Activity/Treatments Diet: Regular Activity: Nothing in vagina for 4 weeks Skin/Wound/Dressing Care Report to your healthcare provider any signs of infection, such as:: chills, fever and increased pain Discharge Data Primary Care Provider: Jony Jacobo
[2019-05-03] MEDS: FERROUS GLUCONATE 324 MG TABLET PO (08:31)
[2019-05-03] MEDS: DOCUSATE 100 MG CAPSULE PO (08:31)
[2019-05-03 09:26] VITALS: BP 115/66; PULSE 100; RESP 17; TEMP 37.1
== END 2019-05-03 12:25 | disposition home or self-care (01) | DRG 806 ==
PROVIDERS: Specialist; Admitting Provider Family Medicine; PCP Family Medicine; Visit Provider Family Medicine
DX: O98.32 Other infections with a predominantly sexual mode of transmission complicating childbirth (principal); D62 Acute posthemorrhagic anemia; Z37.0 Single live birth; D64.9 Anemia, unspecified; A63.0 Anogenital (venereal) warts; Z3A.39 39 weeks gestation of pregnancy; O70.1 Second degree perineal laceration during delivery; O69.2XX0 Labor and delivery complicated by other cord entanglement, with compression, not applicable or unspecified
CPT/HCPCS: 01967; 36415; 59050; 59400; 85025; 86850; 86900; 86901; G0379